=== PATIENT | male | born 1995 | race Caucasian/White ===

== ENCOUNTER 2017-02-08 14:41 | Emergency (ER) | payer OTHER ==
[~2017-02-08] VITALS: Ht 165.1 cm; Wt 54.5 kg
[~2017-02-08 14:41] MED LIST: IBUP-1542 PO
[2017-02-08 15:04] VITALS: Ht 165.1 cm; Wt 54.5 kg
[2017-02-08] MEDS ORDERED: LIDOCAINE 1% (MDV) 20 ML INJ INJ STA (15:55)
[2017-02-08] MEDS ORDERED: ACETAMINOPHEN 325 MG TAB PO STA (15:55)
[2017-02-08] MEDS ORDERED: IBUP400T22 PO (16:20)
--- NOTE | 2017-02-08 16:34 | ERD ---
ER Documentation Chief Complaint Date/Time DATE: 02/08/17 TIME: 16:33 Chief Complaint LACERATION TABLE SAW, LEFT THUMB HPI This 21-year-old male sustained a laceration of his left thumb with a table saw today. Denies restricted range of motion or weakness. His tetanus is up-to- date. ROS All systems reviewed and are negative except as per history of present illness. Medications Home Meds Active Scripts Ibuprofen* (Motrin*) 400 Mg Tab, 400 MG PO Q6, #15 TAB Prov:SHELL NORWOOD MD 02/08/17 Ibuprofen* (Motrin*) 600 Mg Tab, 600 MG PO Q6H Y for PAIN AND OR ELEVATED TEMP, #20 Prov:EWA GALLAGHER MD 07/09/15 Allergies Allergies: Coded Allergies: No Known Allergy (Unverified , 07/09/15) PMhx/Soc History of Surgery: No Anesthesia Reaction: No Hx Neurological Disorder: No Hx Respiratory Disorders: No Hx Cardiac Disorders: No Hx Psychiatric Problems: No Hx Miscellaneous Medical Probl: No Hx Alcohol Use: No Hx Substance Use: No Hx Tobacco Use: No Smoking Status: Never smoker Physical Exam Vitals Vital Signs Date Time Temp Pulse Resp B/P Pulse Ox O2 Delivery O2 Flow Rate FiO2 02/08/17 15:04 98.1 77 18 129/88 100 Physical Exam Const: [] Alert, [id number]. Head: Atraumatic Eyes: Normal Conjunctiva ENT: Normal External Ears, Nose and Mouth. Neck: Full range of motion..~ No meningismus. Resp: Clear to auscultation bilaterally Cardio: Regular rate and rhythm, no murmurs Abd: Soft, non tender, non distended. Normal bowel sounds Skin: No petechiae or rashes Back: No midline or flank tenderness Ext: No cyanosis, or edema. There is approximately 2 cm laceration across the pad of the left thumb. There is no restricted range of motion weakness and no evidence of tendon or neurologic deficits. Neur: Awake and alert Psych: Normal Mood and Affect Results 24 hrs Current Medications Medications (Trade) Dose Ordered Sig/Iris Route PRN Reason Start Time Stop Time Status Last Admin Dose Admin Lidocaine (Xylocaine 1% (Mdv) 20 ml) 20 ml ONCE STAT INJ 02/08/17 15:55 02/08/17 15:58 DC Acetaminophen (Tylenol Tab) 650 mg ONCE STAT PO 02/08/17 15:55 02/08/17 15:58 DC 02/08/17 16:26 Procedures/MDM X-ray left thumb 2V Interpreted by me: Bones: [No fracture] Joints: [No dislocation] Foreign body: [None]. Impression have a normal left adnexa Procedure note-the left thumb was irrigated copiously with normal saline. 2 cc of lidocaine was used for local infiltration. 5 4-0 nylon sutures were used to approximate the wound and the patient tolerated procedure well and the wound was dressed. Patient presents with left thumb laceration without evidence of tendon or neurologic deficit or bacterial infection fracture dislocation of instructions for wound check in 2 days and suture removal in 10 days . Departure Diagnosis: Primary Impression: Laceration Condition: Stable Patient Instructions: Laceration, Hand Additional Instructions: 2 days wound check and 10 days suture removal. Recheck sooner for fevers, redness, new or worsening symptoms. SHELL NORWOOD MD February 08, 2017 16:34
--- NOTE | 2017-02-08 17:00 | RADRPT ---
PROCEDURE: XR Thumb. CLINICAL INDICATION: Left thumb pain following injury TECHNIQUE: Three views of the left thumb are available for review. COMPARISON: None available FINDINGS: The osseous structures demonstrate normal alignment and mineralization. No acute fracture or disloca tion is seen. The joint spaces are well maintained. The soft tissues are unremarkable. No radiopa que foreign body is identified. IMPRESSION: Unremarkable left thumb x-ray series. RPTAT: HH .Kiki Valdez MD, MD Date Time Electronically viewed and signed by .Kiki Valdez MD, on 02/08/2017 16:59 .G/
== END 2017-02-08 17:07 | disposition home or self-care (01) ==
LOC: FTE 14:41
DX: S61.012A Laceration without foreign body of left thumb without damage to nail, initial encounter (principal); W27.0XXA Contact with workbench tool, initial encounter; Y92.9 Unspecified place or not applicable
CPT/HCPCS: 12001; 73140; Z7502; Z7610